=== PATIENT | male | born 1960 | race African-American/Black ===

== ENCOUNTER → 2018-06-17 | Outpatient (CLI) | payer BC, OTHER | LOC: CAT 08:36 | DX: R51 Headache (principal) ==

== ENCOUNTER → 2019-08-31 | Outpatient (CLI) | payer BC, OTHER | LOC: ULTRA 07:32 | DX: R10.11 Right upper quadrant pain (principal) ==

== ENCOUNTER → 2019-09-23 | Outpatient (CLI) | payer BC, OTHER ==
[2019-09-24 03:08] LABS: TESTOSTERONE* 280 ng/dL (264-916)
== END ==
LOC: LAB 16:43
PROVIDERS: Family Medicine
DX: M54.5 Low back pain (principal); E29.1 Testicular hypofunction

== ENCOUNTER → 2019-10-16 | Outpatient (CLI) | payer BC, OTHER | LOC: NUC 09:57 | DX: R10.11 Right upper quadrant pain (principal) ==

== ENCOUNTER → 2020-05-17 | Outpatient (CLI) | payer BC, OTHER | LOC: ULTRA 05-10 13:20 | PROVIDERS: ATTEND Family Medicine | DX: E04.1 Nontoxic single thyroid nodule (principal) ==

== ENCOUNTER → 2020-05-24 | Outpatient (CLI) | payer BC, OTHER ==
--- NOTE | 2020-05-25 16:06 | PATH ---
[facility] [place] [address] PATHOLOGY RPT PROCEDURE Name: TORRES DIAZ Room #: REG [facility]#: [id number] Admission: 05/24/20 Date of : 64 Discharge: Report #: [id number] Path Case #: [id number] Note [facility] Accession Number: [id number] TESTS RESULT FLAG UNITS REF RANGE LAB Clinician Provided Cytology Information No. of containers..01 Other (Miscellaneous) Source: LEFT THYROID DIAGNOSIS: LEFT THYROID NEGATIVE FOR MALIGNANT EPITHELIAL CELLS OR FEATURES OF PAPILLARY THYROID CARCINOMA. BETHESDA CATEGORY II. SPECIMEN CONSISTS OF GROUPS OF FOLLICULAR CELLS, HEMOSIDERIN-LADEN MACROPHAGES, COLLOID, AND BLOOD. THIS PATTERN IS COMPATIBLE WITH A COLLOID NODULE. COLLOID IS PRESENT. RED BLOOD CELLS ARE PRESENT. THIS INTERPRETATION INCLUDES EVALUATION OF A CELL BLOCK. Comment: Examination shows rare groups of follicular cells scattered within abundant colloid. 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 Nuclear features of papillary thyroid carcinoma are not identified. Please note due to scant cellularity that sample may not be entirely bilingual inside sales representative. Correlate clinically and follow-up as indicated. Pathologist ICD10: 02 E04.1 Signed out by: 02 Heidy Wren MD, Pathologist NPI- [id number] Performed by: Greta Lewis, Belt Cutter (ASCP) Gross description: 12 26, CLEAR RED, 3FX 3AD /LCS 05/24/2020 1753 Local FLAG LEGEND: L-Low Normal,H-High Normal,LL-Alert Low,HH-Alert High <-Panic Low,>-Panic High,A-Abnormal,AA-Critical Abnormal Performed at: 01 [facility] [address] [place] [address] [address] [place] [address] Dajuan Garcia MD, [address] [facility] [address] [address] [facility] [address] [place] [address] PATHOLOGY RPT PROCEDURE Name: TORRES DIAZ Room #: REG [facility]#: [id number] Admission: 05/24/20 Date of : 64 Discharge: Report #: [id number] Path Case #: [id number] Heidy Wren MD, Specimen Comment: A courtesy copy of this report has been sent to [phone] Specimen Comment: Report sent to Performed at: [address], [place], [place] [id number] MD Dajuan Garcia MD Phone: [phone]
--- NOTE | 2020-05-25 16:06 | PATH ---
[facility] [address] [place] [address] PATHOLOGY RPT PROCEDURE Name: TORRES DIAZ Room #: REG [facility]#: [id number] Admission: 05/24/20 Date of : 64 Discharge: Report #: [id number] Path Case #: [id number] Note [facility] Accession Number: [id number] TESTS RESULT FLAG UNITS REF RANGE LAB Clinician Provided Cytology Information No. of containers..01 Other (Miscellaneous) Source: LEFT THYROID CYST DIAGNOSIS: LEFT THYROID CYST CONTENTS NEGATIVE FOR MALIGNANT EPITHELIAL CELLS. COLLOID IS PRESENT. THIS INTERPRETATION INCLUDES EVALUATION OF A CELL BLOCK. Pathologist ICD10: 02 E04.1 Signed out by: 02 Heidy Wren MD, Pathologist NPI- [id number] Performed by: 01 Greta Lewis, Medical Affairs Director ([facility]) Gross description: 01 20ML, RED, 1 CB /LCS 05/24/2020 1757 Local FLAG LEGEND: L-Low Normal,H-High Normal,LL-Alert Low,HH-Alert High <-Panic Low,>-Panic High,A-Abnormal,AA-Critical Abnormal Performed at: [address] [place] [address] Dajuan Garcia MD, [address] [address] Heidy Wren MD, Specimen Comment: A courtesy copy of this report has been sent to [phone] Specimen Comment: Report sent to Performed at: [address], [place], [place] [id number] MD Dajuan Garcia MD Phone: [phone]
== END | disposition home or self-care (01) ==
LOC: ULTRA 12:37
PROVIDERS: ATTEND Family Medicine
DX: E04.1 Nontoxic single thyroid nodule (principal)

== ENCOUNTER → 2020-08-19 | Outpatient (CLI) | payer BC, OTHER | LOC: RAD 13:49 | PROVIDERS: ATTEND Family Medicine | DX: G89.29 Other chronic pain (principal); M54.5 Low back pain ==

== ENCOUNTER → 2021-12-11 | Outpatient (CLI) | payer OTHER | LOC: SJCVCIMAG 09:04 | PROVIDERS: ATTEND Nuclear Medicine Nuclear Cardiology | DX: M79.605 Pain in left leg (principal); M79.604 Pain in right leg; I73.9 Peripheral vascular disease, unspecified; E11.9 Type 2 diabetes mellitus without complications; E78.5 Hyperlipidemia, unspecified; Z79.4 Long term (current) use of insulin; Z79.899 Other long term (current) drug therapy ==

== ENCOUNTER → 2021-12-13 | Outpatient (CLI) | payer OTHER | LOC: CAT 14:11 | PROVIDERS: ATTEND Family Medicine | DX: Z13.6 Encounter for screening for cardiovascular disorders (principal); I25.10 Atherosclerotic heart disease of native coronary artery without angina pectoris ==

== ENCOUNTER → 2021-12-27 | Outpatient (CLI) | payer OTHER | LOC: SJCVCIMAG 13:39 | PROVIDERS: ATTEND Internal Medicine | DX: M54.12 Radiculopathy, cervical region (principal); M54.50 Low back pain, unspecified; E11.9 Type 2 diabetes mellitus without complications; F32.A Depression, unspecified; R00.0 Tachycardia, unspecified; I10 Essential (primary) hypertension; E78.5 Hyperlipidemia, unspecified; I73.9 Peripheral vascular disease, unspecified; Z82.49 Family history of ischemic heart disease and other diseases of the circulatory system; Z79.82 Long term (current) use of aspirin; Z79.899 Other long term (current) drug therapy ==